=== PATIENT | male | born 1955 | race Caucasian/White ===

== ENCOUNTER 2019-10-03 13:31 | Observation (INO) | payer OTHER ==
[2019-10-03] MEDS ORDERED: methylPREDNISolone SOD SUCCI 125 MG/2 ML VIAL IV STA (13:51)
[2019-10-03] MEDS ORDERED: ALBUTEROL NEBULIZED 2.5 MG/3 ML INHALATION STA (13:51)
[2019-10-03] MEDS ORDERED: IPRATROPIUM 0.5 MG/2.5 ML NEBU INHALATION STA (13:51)
--- NOTE | 2019-10-03 14:03 | ED ---
General Adult HPI - General Chief complaint: Chest Pain Stated complaint: Chest Pain Time Seen by Provider: 10/03/19 13:33 Source: patient, EMS, RN notes reviewed, old records reviewed Mode of arrival: EMS - History of Present Illness Initial comments: 63-year-old male presenting from [facility] for evaluation of chest pain and abdominal pain as well as difficulty breathing. Patient is 4 days free from narcotics and alcohol. He began developing some chest pain and dyspnea as well as some abdominal pain over the past 24 hours. He was sent to the emergency department for evaluation. Patient reports substernal and epigastric abdominal pain no radiating features. Additionally said some cough and dyspnea and is audibly wheezing on exam. No fever. No diarrhea. - Related Data Home Medications Medication Instructions Recorded Confirmed No Known Home Medications 10/03/19 10/03/19 Allergies Allergy/AdvReac Type Severity Reaction Status Date / Time No Known Allergies Allergy Verified 10/03/19 15:51 Review of Systems ROS Statement: Those systems with pertinent positive or pertinent negative responses have been documented in the HPI. ROS Other: All systems not noted in ROS Statement are negative. Past Medical History History of Any Multi-Drug Resistant Organisms: None Reported Additional Past Surgical History / Comment(s): surgical removal of object when baby Past Psychological History: No Psychological Hx Reported Smoking Status: Current every day smoker Past Alcohol Use History: Abuse, Daily Past Drug Use History: Heroin General Exam General appearance: alert, in no apparent distress Head exam: Present: atraumatic, normocephalic Eye exam: Present: normal appearance, PERRL ENT exam: Present: normal exam Neck exam: Present: normal inspection. Absent: tenderness, meningismus Respiratory exam: Present: respiratory distress, wheezes Cardiovascular Exam: Present: normal rhythm, tachycardia GI/Abdominal exam: Present: soft, tenderness (Mild epigastric tenderness). Absent: distended Extremities exam: Present: normal inspection, normal capillary refill, pedal edema (trace) Neurological exam: Present: alert, oriented X3, CN II-XII intact. Absent: motor sensory deficit Psychiatric exam: Present: anxious Skin exam: Present: warm, dry, intact. Absent: cyanosis, diaphoretic Course Vital Signs 10/03/19 10/03/19 10/03/19 13:35 14:16 14:29 Temperature 98.4 F Pulse Rate 110 H 86 104 H Respiratory 22 Rate Blood Pressure 162/115 O2 Sat by Pulse 96 Oximetry EKG Findings - EKG Comments: EKG Findings:: EKG: Normal sinus rhythm, rate of 86, MD interval 156, QRS durat ion 90, QTC 414, no ST segment elevation. Medical Decision Making - Medical Decision Making 63-[facility] with chest pain, abdominal pain, dyspnea. Patient wheezing on exam. EKG showing sinus rhythm without ST segment elevation. He has a chest x-ray concerning for CHF versus pulmonary fibrosis. He does have some fairly severe epigastric abdominal pain, ultrasound is ordered which shows a dilated common bile duct, with minimal elevation in AST ALT and alkaline phosphatase. Patient is improved while emergency prompt. He remains moderately dyspneic with wheezing throughout. He will be admitted for treatment of asthma and COPD. Case discussed with Dr. Almonte who will admit. - Lab Data Result diagrams: 10/03/19 14:23 10/03/19 14:23 Lab Results 10/03/19 10/03/19 10/03/19 Range/Units 14:23 14:23 14:23 WBC 3.9 (3.8-10.6) k/uL RBC 3.48 L (4.30-5.90) m/uL Hgb 13.4 (13.0-17.5) gm/dL Hct 40.1 (39.0-53.0) % MCV 115.3 H (80.0-100.0) fL MCH 38.4 H (25.0-35.0) pg MCHC 33.3 (31.0-37.0) g/dL RDW 13.8 (11.5-15.5) % Plt Count 120 L (150-450) k/uL Neutrophils % 69 % Lymphocytes % 21 % Monocytes % 6 % Eosinophils % 1 % Basophils % 0 % Neutrophils # 2.7 (1.3-7.7) k/uL Lymphocytes # 0.8 L (1.0-4.8) k/uL Monocytes # 0.3 (0-1.0) k/uL Eosinophils # 0.1 (0-0.7) k/uL Basophils # 0.0 (0-0.2) k/uL Manual Slide Review Performed Macrocytosis Marked A PT 11.1 (9.0-12.0) sec INR 1.1 (<1.2) APTT 23.2 (22.0-30.0) sec VBG pH (7.31-7.41) VBG pCO2 (37-51) mmHg VBG HCO3 (24-28) mmol/L Sodium 135 L (137-145) mmol/L Potassium 4.5 (3.5-5.1) mmol/L Chloride 102 (98-107) mmol/L Carbon Dioxide 26 (22-30) mmol/L Anion Gap 7 mmol/L BUN 18 (9-20) mg/dL Creatinine 0.68 (0.66-1.25) mg/dL Est GFR (CKD-EPI)AfAm >90 (>60 ml/min/1.73 sqM) Est GFR (CKD-EPI)NonAf >90 (>60 ml/min/1.73 sqM) Glucose 123 H (74-99) mg/dL Plasma Lactic Acid Librado (0.7-2.0) mmol/L Calcium 9.4 (8.4-10.2) mg/dL Magnesium 1.9 (1.6-2.3) mg/dL Total Bilirubin 1.3 (0.2-1.3) mg/dL AST 140 H (17-59) U/L ALT 76 H (4-49) U/L Alkaline Phosphatase 200 H (38-126) U/L Troponin I (0.000-0.034) ng/mL NT-Pro-B Natriuret Pep pg/mL Total Protein 8.8 H (6.3-8.2) g/dL Albumin 3.9 (3.5-5.0) g/dL 10/03/19 10/03/19 10/03/19 Range/Units 14:23 14:23 14:23 WBC (3.8-10.6) k/uL RBC (4.30-5.90) m/uL Hgb (13.0-17.5) gm/dL Hct (39.0-53.0) % MCV (80.0-100.0) fL MCH (25.0-35.0) pg MCHC (31.0-37.0) g/dL RDW (11.5-15.5) % Plt Count (150-450) k/uL Neutrophils % % Lymphocytes % % Monocytes % % Eosinophils % % Basophils % % Neutrophils # (1.3-7.7) k/uL Lymphocytes # (1.0-4.8) k/uL Monocytes # (0-1.0) k/uL Eosinophils # (0-0.7) k/uL Basophils # (0-0.2) k/uL Manual Slide Review Macrocytosis PT (9.0-12.0) sec INR (<1.2) APTT (22.0-30.0) sec VBG pH (7.31-7.41) VBG pCO2 (37-51) mmHg VBG HCO3 (24-28) mmol/L Sodium (137-145) mmol/L Potassium (3.5-5.1) mmol/L Chloride (98-107) mmol/L Carbon Dioxide (22-30) mmol/L Anion Gap mmol/L BUN (9-20) mg/dL Creatinine (0.66-1.25) mg/dL Est GFR (CKD-EPI)AfAm (>60 ml/min/1.73 sqM) Est GFR (CKD-EPI)NonAf (>60 ml/min/1.73 sqM) Glucose (74-99) mg/dL Plasma Lactic Acid Librado 1.1 (0.7-2.0) mmol/L Calcium (8.4-10.2) mg/dL Magnesium (1.6-2.3) mg/dL Total Bilirubin (0.2-1.3) mg/dL AST (17-59) U/L ALT (4-49) U/L Alkaline Phosphatase (38-126) U/L Troponin I 0.013 (0.000-0.034) ng/mL NT-Pro-B Natriuret Pep 364 pg/mL Total Protein (6.3-8.2) g/dL Albumin (3.5-5.0) g/dL 10/03/19 Range/Units 14:23 WBC (3.8-10.6) k/uL RBC (4.30-5.90) m/uL Hgb (13.0-17.5) gm/dL Hct (39.0-53.0) % MCV (80.0-100.0) fL MCH (25.0-35.0) pg MCHC (31.0-37.0) g/dL RDW (11.5-15.5) % Plt Count (150-450) k/uL Neutrophils % % Lymphocytes % % Monocytes % % Eosinophils % % Basophils % % Neutrophils # (1.3-7.7) k/uL Lymphocytes # (1.0-4.8) k/uL Monocytes # (0-1.0) k/uL Eosinophils # (0-0.7) k/uL Basophils # (0-0.2) k/uL Manual Slide Review Macrocytosis PT (9.0-12.0) sec INR (<1.2) APTT (22.0-30.0) sec VBG pH 7.48 H (7.31-7.41) VBG pCO2 40 (37-51) mmHg VBG HCO3 29 H (24-28) mmol/L Sodium (137-145) mmol/L Potassium (3.5-5.1) mmol/L Chloride (98-107) mmol/L Carbon Dioxide (22-30) mmol/L Anion Gap mmol/L BUN (9-20) mg/dL Creatinine (0.66-1.25) mg/dL Est GFR (CKD-EPI)AfAm (>60 ml/min/1.73 sqM) Est GFR (CKD-EPI)NonAf (>60 ml/min/1.73 sqM) Glucose (74-99) mg/dL Plasma Lactic Acid Librado (0.7-2.0) mmol/L Calcium (8.4-10.2) mg/dL Magnesium (1.6-2.3) mg/dL Total Bilirubin (0.2-1.3) mg/dL AST (17-59) U/L ALT (4-49) U/L Alkaline Phosphatase (38-126) U/L Troponin I (0.000-0.034) ng/mL NT-Pro-B Natriuret Pep pg/mL Total Protein (6.3-8.2) g/dL Albumin (3.5-5.0) g/dL Disposition Clinical Impression: Chest pain, COPD (chronic obstructive pulmonary disease) Disposition: ADMITTED IP TO THIS [facility] Condition: Stable Is patient prescribed a controlled substance at d/c from ED?: No Referrals: None,Stated [REFERRING] - 1-2 days Decision to Admit Reason: Admit from EC Decision Date: 10/03/19 Decision Time: 17:14
[2019-10-03] MEDS ORDERED: LORazepam 2 MG/ML INJ IV STA ×2 (14:06→17:29)
[2019-10-03] MEDS ORDERED: MORPHINE SULFATE 2 MG/ML SYRINGE IVP STA ×2 (14:06→15:06)
[2019-10-03 14:42] LABS: VBG PH 7.48 (7.31-7.41)
[2019-10-03 14:52] LABS: ALT 76 U/L (4-49); AST 140 U/L (17-59); African American GFR (CKD) >90 (>60 ml/min/1.73 sqM); Albumin 3.9 g/dL (3.5-5.0); Alkaline Phosphatase 200 U/L (38-126); Anion Gap 7 mmol/L; Blood Urea Nitrogen 18 mg/dL (9-20); Calcium 9.4 mg/dL (8.4-10.2); Carbon Dioxide 26 mmol/L (22-30); Chloride 102 mmol/L (98-107); Glucose 123 mg/dL (74-99); Magnesium 1.9 mg/dL (1.6-2.3); Non-African American GFR(CKD) >90 (>60 ml/min/1.73 sqM); Potassium 4.5 mmol/L (3.5-5.1); Sodium 135 mmol/L (137-145); Total Bilirubin 1.3 mg/dL (0.2-1.3); Total Protein 8.8 g/dL (6.3-8.2)
[2019-10-03 14:57] LABS: INR 1.1 (<1.2); Partial Thromboplastin Time 23.2 sec (22.0-30.0); Prothrombin Time 11.1 sec (9.0-12.0)
--- NOTE | 2019-10-03 14:59 | XR ---
EXAMINATION TYPE: XR chest 2V DATE OF EXAM: 10/03/2019 COMPARISON: NONE HISTORY: Shortness of breath and chest pain. TECHNIQUE: Frontal and lateral views of the chest are obtained. FINDINGS: Cardiomegaly is present. Reticular interstitial changes bilaterally. No suspicious focal a irspace opacity, pleural effusion, or pneumothorax. Osseous structures are intact. IMPRESSION: Cardiomegaly and bilateral reticular interstitial changes could reflect edema and/or fib rosis. Correlation with old outside chest x-ray would be beneficial.
[2019-10-03 15:11] LABS: Basophils % (A) 0 %; Eosinophils # (A) 0.1 k/uL (0-0.7); Eosinophils % (A) 1 %; HCT 40.1 % (39.0-53.0); HGB 13.4 gm/dL (13.0-17.5); Lymphocytes # (A) 0.8 k/uL (1.0-4.8); Lymphocytes % (A) 21 %; MCH 38.4 pg (25.0-35.0); MCHC 33.3 g/dL (31.0-37.0); MCV 115.3 fL (80.0-100.0); Macrocytosis Marked; Mean Platelet Volume 8.1; Monocytes # (A) 0.3 k/uL (0-1.0); Monocytes % (A) 6 %; Neutrophils # (A) 2.7 k/uL (1.3-7.7); Neutrophils % (A) 69 %; Platelet Count 120 k/uL (150-450); RBC 3.48 m/uL (4.30-5.90); RDW 13.8 % (11.5-15.5); WBC 3.9 k/uL (3.8-10.6)
[2019-10-03] MEDS ORDERED: MORPHINE SULFATE 4 MG/ML SYRINGE IVP STA (15:20)
[2019-10-03] MEDS ORDERED: FUROSEMIDE 10 MG/ML 2 ML VIAL IV STA (15:20)
--- NOTE | 2019-10-03 16:42 | US ---
EXAMINATION TYPE: US gallbladder DATE OF EXAM: 10/03/2019 COMPARISON: NONE CLINICAL HISTORY: ab pain. Severe epigastric pain today, chest pain EXAM MEASUREMENTS: Liver Length: 16.4 cm Gallbladder Wall: 0.2 cm CBD: 1.36 cm supine assessment Right Kidney: 12.4 x 6.9 x 6.3 cm Patient intolerant of US due to abdominal pain with probe pressure and was constantly moving Pancreas: not seen due to overlying bowel gas Liver: fatty as is hyperechoic to right renal cortex and vessels not seen; attenuated posteriorly Gallbladder: wnl Evidence for sonographic Yost's sign: pain here CBD: abnormally dilated and assessed in supine and LLD positions Right Kidney: couple of renal cysts seen with largest seen in upper cortex = 3.0 x 2.6 x 2.1cm. Suboptimal evaluation of pancreas and images saved. Visualized liver is heterogeneously hyperechoic. Evaluation for focal masses suboptimal due to the heterogeneity. Common bile duct shows moderate dila tation at 13 mm. No obvious intrahepatic biliary dilatation. Gallbladder shows no shadowing mobile ga llstones. Technologist marked simple appearing 3.0 cm cyst right kidney upper midpole level. No hydro nephrosis is evident. IMPRESSION: No shadowing mobile gallstones or ultrasound evidence for acute cholecystitis. Moderate e xtra hepatic biliary dilatation without obvious intrahepatic biliary dilatation. Correlate clinically and with liver lab values. Heterogeneity of liver could be on basis of diffuse fatty infiltration an d/or underlying hepatocellular disease.
[2019-10-03] MEDS ORDERED: IPRATROPIUM-ALBUTEROL 3 ML NEB INHALATION PRN (17:11)
[2019-10-03] MEDS ORDERED: LORazepam 2 MG/ML INJ IV PRN ×2 (17:12)
[2019-10-03] MEDS ORDERED: THIAMINE 100 MG/ML 2 ML VIAL IM STA (17:12)
[2019-10-03] MEDS ORDERED: MORPHINE SULFATE 2 MG/ML SYRINGE IVP PRN (17:13)
--- NOTE | 2019-10-03 17:34 | P.HPIM ---
History of Present Illness H&P Date: 10/03/19 Chief Complaint: chest and abdominal pain Patient is a 63-year-old male with a history of tobacco abuse, alcohol abuse, and heroin abuse who presented from [place] secondary to chest pain, abdominal pain, difficulty in breathing. He underwent an extensive evaluation. His initial vital signs show a pulse of 110 and a blood pressure of 162/115. Initial laboratory analysis demonstrated platelet count of 120, macrocytosis, sodium 135, AST 140, ALT 76, alkaline phosphatase 200, bilirubin 1.3, troponin was negative at 0.013. EKG is reviewed by myself revealed normal sinus rhythm at a rate of 86, normal axis, normal intervals, and no significant ST-T wave changes. Chest x-ray demonstrated bilateral reticular interstitial changes reflecting edema or fibrosis. Gallbladder ultrasound showed an abnormally dilated extrahepatic bile duct, heterogeneous hyperechoic liver, but no evidence of gallstones or acute cholecystitis. In the ER the patient received 6 mg of morphine, 1 mg of Ativan, and 125 mg of Solu-Medrol. He was also noted to have lower extremity edema and received 1 dose of IV Lasix. Patient seen and examined at bedside in the ER. He reports he still feels terrible. He was at [place] for approximately 3 days secondary to alcohol abuse and heroin use. He was drinking 1.5 pint of vodka daily and using the $100 worth of heroin daily. It has been a long time since he has gone any days without using heroin or drinking. He reports he was having mild withdrawal symptoms and then received Subutex approximately 2 hours later had severe sudden onset withdrawal symptoms. He is complaining of abdominal pain which is periumbilical. He had diarrhea starting last night which has been persistent, he had nausea and vomiting starting today. He is feeling diaphoretic, having hot and cold flashes, but denies feeling shaky. He has chronic dry cough and wheezing which is typical for him. He also is chronic shortness of breath but has noted some worsening. He does report worsening acid reflux over the last few weeks. He had a rapid in crease in his alcohol consumption approximately 2 months ago. He reports that drinking milk has helped with this. He does feel as though his symptoms are likely related to opiate withdrawal. Patient does no erythema over his right breast and was waiting for it to come to ahead so he can pop it. He states he was injecting in this region. He is unsure how many days it has been like this. Review of Systems Pertinent positives and negatives as discussed in HPI, a complete review of systems was performed and all other systems are negative. Past Medical History History of Any Multi-Drug Resistant Organisms: None Reported Additional Past Surgical History / Comment(s): surgical removal of object when baby Past Psychological History: No Psychological Hx Reported Smoking Status: Current every day smoker Past Alcohol Use History: Abuse, Daily Past Drug Use History: Heroin Medications and Allergies Home Medications Medication Instructions Recorded Confirmed Type No Known Home Medications 10/03/19 10/03/19 History Allergies Allergy/AdvReac Type Severity Reaction Status Date / Time No Known Allergies Allergy Verified 10/03/19 15:51 Physical Exam Osteopathic Statement: *. No significant issues noted on an osteopathic structural exam other than those noted in the History and Physical/Consult. Vitals: Vital Signs Temp Pulse Resp BP Pulse Ox 10/03/19 17:26 98.2 F 64 20 169/123 96 10/03/19 14:29 104 H 10/03/19 14:16 86 10/03/19 13:35 98.4 F 110 H 22 162/115 96 Intake and Output 10/03/19 10/03/19 10/03/19 06:59 14:59 22:59 Other: Weight 113.398 kg General: Ill-appearing, diaphoretic, appears at stated age, obese Derm: Erythema with fluctuance over right wrist, warm, diaphoretic, multiple tattoos, ears and on both arms Head: atraumatic, normocephalic, symmetric Eyes: EOMI, no lid lag, anicteric sclera, pupils equal round reactive to light ENT: Nose and ears atraumatic, no thrush, no pharyngeal erythema Neck: No thyromegaly, no cervical lymphadenopathy, trachea midline, supple Mouth: no lip lesion, mucus membranes dry Cardiovascular: S1 and S2 tachycardic, positive posterior tibial pulse bilateral, no edema, capillary refill less than 2 seconds Lungs: Wheezing diffusely over right and left lung, no accessory muscle use Abdominal: soft, nontender to palpation, no guarding, no appreciable organomegaly, normal bowel sounds Ext: no gross muscle atrophy, muscle strength muscle strength 5 out of 5 in all 4 extremities, no contractures Neuro: CN II-XI grossly intact, light touch intact all 4 extremities, finger to nose within normal limits, Psych: Alert, sleeping but awakes to touch and voice, shaky when awakened, appropriate affect Results CBC & Chem 7: 10/03/19 14:23 10/03/19 14:23 Labs: Abnormal Lab Results - Last 24 Hours (Table) 10/03/19 10/03/19 10/03/19 Range/Units 14:23 14:23 14:23 RBC 3.48 L (4.30-5.90) m/uL MCV 115.3 H (80.0-100.0) fL MCH 38.4 H (25.0-35.0) pg Plt Count 120 L (150-450) k/uL Lymphocytes # 0.8 L (1.0-4.8) k/uL Macrocytosis Marked A VBG pH 7.48 H (7.31-7.41) VBG HCO3 29 H (24-28) mmol/L Sodium 135 L (137-145) mmol/L Glucose 123 H (74-99) mg/dL AST 140 H (17-59) U/L ALT 76 H (4-49) U/L Alkaline Phosphatase 200 H (38-126) U/L Total Protein 8.8 H (6.3-8.2) g/dL Chest x-ray: report reviewed Thrombosis Risk Factor Assmnt - DVT/VTE Prophylaxis DVT/VTE Prophylaxis: Pharmacologic Prophylaxis ordered Assessment and Plan Assessment: Precipitated withdrawal of heroin secondary to Buprenorphine induction -Patient received 6 mg of morphine in the ER. He would require high-dose opiate agonists to overcome these withdrawal symptoms. Unfortunately we do not have oral Buprenorphine available in the hospital to re-dose for improvement -supportive treatment with catapress, toradol, and Zofran Intractable abdominal pain suspect related to above -Trial of GI cocktail -Start PPI in case this is secondary to gastritis Chest pain -I again suspect secondary to opiate withdrawal -Trend serial troponins -Monitor telemetry Hypertensive urgency -Likely related to opiate and alcohol withdrawal -Follow blood pressures -Ativan as needed -Start Catapres Alcohol abuse with impending withdrawal -[facility] protocol -Thiamine -Folic acid -Social work consult Acute exacerbation of probable COPD -Bronchodilators -Steroids -Pulmonary hygiene -Recommend outpatient PFTs on discharge Transaminitis - suspect related to alcohol - follow liver enzymes - if elevate check Hep Panel - US with cirrhosis Right wrist abscess with cellulitis - follow clinically - start bactrim oral Obesity - structured outpatient weight loss Tobacco abuse - cessation - structured outpatient weight loss IF withdrawal worsens may need higher level of care Patient admitted with anticipated stay of less than 2 at midnight secondary to precipitated opiate withdrawal Surrogate decision-maker: Micaela Spears [phone] CODE STATUS: Full code DVT prophylaxis: Lovenox Discussed with: Patient, floor RN, ED physician Anticipated discharge: 1-[address]: return to [place] A total of 7 minutes was spent on the care of this complex patient more than 50% of the time was spent in counseling and care coordination.
[2019-10-03] MEDS ORDERED: MAG HYDROX/AL HYDROX/SIMETH 30 ML, HYOSCYAMINE ELIXIR 10 ML, LIDOCAINE VISCOUS 2% 10 ML PO ONE ×3 (18:00)
[2019-10-03] MEDS: THIAMINE 100 MG TAB PO SCH (18:30)
[2019-10-03] MEDS: methylPREDNISolone SOD SUCCI 125 MG/2 ML VIAL IV SCH ×2 (18:30→23:48)
[2019-10-03] MEDS ORDERED: DICLOFENAC SODIUM GEL 100 GM TUBE TOPICAL PRN (18:33)
[2019-10-03] MEDS ORDERED: PROCHLORPERAZINE 5 MG TAB PO PRN (18:33)
[2019-10-03] MEDS ORDERED: BENZOCAINE/MENTHOL LOZENG 1 EACH LOZENGE MUCOUS MEM PRN (18:33)
[2019-10-03] MEDS ORDERED: ONDANSETRON 4 MG/2 ML VIAL IVP PRN (18:33)
[2019-10-03] MEDS ORDERED: KETOROLAC 15 MG/ML 1 ML VIAL IVP PRN (18:33)
[2019-10-03] MEDS ORDERED: MELATONIN 3 MG TABLET PO PRN (18:33)
[2019-10-03] MEDS ORDERED: NALOXONE 0.4 MG/ML 1 ML VIAL IV PRN (18:33)
[2019-10-03] MEDS: FOLIC ACID 1 MG TAB PO SCH (19:38)
[2019-10-03] MEDS: cloNIDine HCL 0.2 MG TAB PO SCH ×2 (19:38→23:36)
[2019-10-03] MEDS: PANTOPRAZOLE 40 MG/10 ML VIAL IVP SCH (19:38)
[2019-10-03] MEDS: IPRATROPIUM-ALBUTEROL 3 ML NEB INHALATION SCH (20:15)
[2019-10-03] MEDS: LORazepam 2 MG/ML INJ IV PRN (23:47)
[2019-10-04] MEDS: methylPREDNISolone SOD SUCCI 125 MG/2 ML VIAL IV SCH (06:24)
[2019-10-04 07:11] LABS: HCT 42.7 % (39.0-53.0); MCH 38.3 pg (25.0-35.0); MCHC 32.9 g/dL (31.0-37.0); MCV 116.5 fL (80.0-100.0); Mean Platelet Volume 8.6; Platelet Count 136 k/uL (150-450); RBC 3.66 m/uL (4.30-5.90); RDW 13.9 % (11.5-15.5); WBC 7.5 k/uL (3.8-10.6)
[2019-10-04 07:25] LABS: ALT 66 U/L (4-49); AST 103 U/L (17-59); African American GFR (CKD) >90 (>60 ml/min/1.73 sqM); Albumin 4.1 g/dL (3.5-5.0); Alkaline Phosphatase 190 U/L (38-126); Anion Gap 9 mmol/L; Blood Urea Nitrogen 25 mg/dL (9-20); Calcium 9.2 mg/dL (8.4-10.2); Carbon Dioxide 26 mmol/L (22-30); Chloride 100 mmol/L (98-107); Glucose 152 mg/dL (74-99); Non-African American GFR(CKD) >90 (>60 ml/min/1.73 sqM); Phosphorus 4.5 mg/dL (2.5-4.5); Sodium 135 mmol/L (137-145); Total Bilirubin 1.5 mg/dL (0.2-1.3); Total Protein 9.5 g/dL (6.3-8.2)
[2019-10-04 07:29] LABS: Macrocytosis Marked
[2019-10-04] MEDS: IPRATROPIUM-ALBUTEROL 3 ML NEB INHALATION SCH ×4 (07:50→20:31)
[2019-10-04] MEDS ORDERED: ACETAMINOPHEN TAB 325 MG TAB PO PRN (08:40)
[2019-10-04] MEDS ORDERED: MAG HYDROX/AL HYDROX/SIMETH 30 ML, HYOSCYAMINE ELIXIR 10 ML, LIDOCAINE VISCOUS 2% 10 ML PO ONE ×3 (08:40)
[2019-10-04] MEDS: SODIUM CHLORIDE 0.9% 1,000 ML IV SCH (09:28)
[2019-10-04] MEDS: ENOXAPARIN 40 MG/0.4 ML SYRINGE SQ SCH (09:36)
[2019-10-04] MEDS: SULFAMETHOX-TMP 800-160MG 1 EACH TAB PO SCH ×2 (09:36→20:36)
[2019-10-04] MEDS: FOLIC ACID 1 MG TAB PO SCH (09:37)
[2019-10-04] MEDS: cloNIDine HCL 0.2 MG TAB PO SCH ×3 (09:37→20:35)
[2019-10-04] MEDS: PANTOPRAZOLE 40 MG/10 ML VIAL IVP SCH (09:37)
[2019-10-04] MEDS: THIAMINE 100 MG/ML 2 ML VIAL IVP SCH (09:38)
[2019-10-04] MEDS: THIAMINE 100 MG TAB PO SCH ×2 (09:38→17:00)
--- NOTE | 2019-10-04 11:23 | P.PN ---
Subjective Progress Note Date: 10/04/19 Principal diagnosis: pain Patient is a 63-year-old male with a history of tobacco abuse, alcohol abuse, and heroin abuse who presented from [place] secondary to chest pain, ab dominal pain, difficulty in breathing. He underwent an extensive evaluation. His initial vital signs show a pulse of 110 and a blood pressure of 162/115. Initial laboratory analysis demonstrated platelet count of 120, macrocytosis, sodium 135, AST 140, ALT 76, alkaline phosphatase 200, bilirubin 1.3, troponin was negative at 0.013. EKG is reviewed by myself revealed normal sinus rhythm at a rate of 86, normal axis, normal intervals, and no significant ST-T wave changes. Chest x-ray demonstrated bilateral reticular interstitial changes reflecting edema or fibrosis. Gallbladder ultrasound showed an abnormally dilated extrahepatic bile duct, heterogeneous hyperechoic liver, but no evidence of gallstones or acute cholecystitis. In the ER the patient received 6 mg of morphine, 1 mg of Ativan, and 125 mg of Solu-Medrol. He was also noted to have lower extremity edema and received 1 dose of IV Lasix. He was admitted for acute exacerbation of COPD and acute severe opiate withdrawal. He was started on catapres, toradol, and zofran. He had some improvement with GI cocktail. Patient seen and examined at bedside. He still is having some abdominal pain, he states it was resolved last night came back this morning. He has having some overall muscle cramps, no more diarrhea, intermittent nausea. He is still not feeling very well. We discussed that he will likely continue with his withdrawal and this is anticipated. We will try another GI cocktail and if he does not have significant pain relief we'll proceed with a CT abdomen and pelvis. General: Sleeping on a walk in the room, but then sits up and clenches his stomach, appears to be in mild distress, ill-appearing, disheveled Derm: warm, dry Head: atraumatic, normocephalic, symmetric Eyes: EOMI, no lid lag, anicteric sclera Mouth: no lip lesion, mucus membranes moist Cardiovascular: S1S2 reg, no murmur, positive posterior tibial pulse bilateral, Lungs: coarse breath sounds bilateral moderate wheezing, no accessory muscle use Abdominal: soft, +tender to palpation periumbilical, no guarding, no appreciable organomegaly Ext: no gross muscle atrophy, no edema, no contractures Neuro: CN II-XI grossly intact, no focal neuro deficits Psych: Alert, oriented, Appears anxious Precipitated withdrawal of heroin secondary to Buprenorphine induction -Patient received 6 mg of morphine in the ER. He would require high-dose opiate agonists to overcome these withdrawal symptoms. Unfortunately we do not have oral Buprenorphine available in the hospital to re-dose for improvement -supportive treatment with catapress, toradol, and Zofran Intractable abdominal pain suspect related to above - Improvement with GI cocktail - Continue PPI - Check Lipase Chest pain - I again suspect secondary to opiate withdrawal - Trend serial troponins - Monitor telemetry - Await echo Hypertensive urgency, improved -Likely related to opiate and alcohol withdrawal -Follow blood pressures -Ativan as needed -catapres Alcohol abuse with impending withdrawal -[facility] protocol -Thiamine -Folic acid -Social work consult Acute exacerbation of probable COPD -Bronchodilators -Steroids to oral -Pulmonary hygiene -Recommend outpatient PFTs on discharge Transaminitis - suspect related to alcohol - follow liver enzymes - if elevate check Hep Panel - US with cirrhosis Right wrist abscess with cellulitis - follow clinically - start bactrim oral Obesity - structured outpatient weight loss Tobacco abuse - cessation - structured outpatient weight loss DVT prophylaxis: Lovenox Discussed with: Patient, nursing Anticipated discharge: in AM Anticipated discharge place: [facility] A total of 35 minutes was spent on the care of this complex patient more than 50% of the time was spent in counseling and care coordination. Objective - Vital Signs Vital signs: Vital Signs Temp 97.6 F 10/04/19 04:07 Pulse 92 10/04/19 08:01 Resp 18 10/04/19 04:07 BP 156/84 10/04/19 04:07 Pulse Ox 92 L 10/04/19 07:50 Intake & Output 10/03/19 10/04/19 10/04/19 18:59 06:59 18:59 Output Total 600 Balance -600 Weight 113.398 kg Output: Urine 600 Other: # Voids 0 # Bowel Movements 0 - Labs CBC & Chem 7: 10/04/19 06:44 10/04/19 06:44 Labs: Abnormal Lab Results - Last 24 Hours (Table) 10/03/19 10/03/19 10/03/19 Range/Units 14:23 14:23 14:23 RBC 3.48 L (4.30-5.90) m/uL MCV 115.3 H (80.0-100.0) fL MCH 38.4 H (25.0-35.0) pg Plt Count 120 L (150-450) k/uL Lymphocytes # 0.8 L (1.0-4.8) k/uL Macrocytosis Marked A VBG pH 7.48 H (7.31-7.41) VBG HCO3 29 H (24-28) mmol/L Sodium 135 L (137-145) mmol/L BUN (9-20) mg/dL Glucose 123 H (74-99) mg/dL Total Bilirubin (0.2-1.3) mg/dL AST 140 H (17-59) U/L ALT 76 H (4-49) U/L Alkaline Phosphatase 200 H (38-126) U/L Total Protein 8.8 H (6.3-8.2) g/dL 10/04/19 10/04/19 Range/Units 06:44 06:44 RBC 3.66 L (4.30-5.90) m/uL MCV 116.5 H (80.0-100.0) fL MCH 38.3 H (25.0-35.0) pg Plt Count 136 L (150-450) k/uL Lymphocytes # (1.0-4.8) k/uL Macrocytosis Marked A VBG pH (7.31-7.41) VBG HCO3 (24-28) mmol/L Sodium 135 L (137-145) mmol/L BUN 25 H (9-20) mg/dL Glucose 152 H (74-99) mg/dL Total Bilirubin 1.5 H (0.2-1.3) mg/dL AST 103 H (17-59) U/L ALT 66 H (4-49) U/L Alkaline Phosphatase 190 H (38-126) U/L Total Protein 9.5 H (6.3-8.2) g/dL
--- NOTE | 2019-10-04 12:38 | ECHOF ---
Referral Reason:CHF MEASUREMENTS -------- HEIGHT: 177.8 cm WEIGHT: 113.4 kg BP: 156/84 IVSd: 1.2 cm (0.6 - 1.1) LVIDd: 5.4 cm (3.9 - 5.3) LVPWd: 1.6 cm (0.6 - 1.1) IVSs: 1.8 cm LVIDs: 4.0 cm LVPWs: 1.6 cm LAESV Index (A-L): 28.29 ml/m Ao Diam: 3.7 cm (2.0 - 3.7) AV Cusp: 1.7 cm (1.5 - 2.6) MV E Leonard: 0.53 m/s MV DecT: 205 ms MV A Leonard: 0.88 m/s MV E/A Ratio: 0.61 RAP: 5.00 mmHg RVSP: 34.59 mmHg FINDINGS -------- Sinus rhythm. This was a technically difficult study with suboptimal views. The left ventricular size is normal. There is mild concentric left ventricular hypertrophy. Overa ll left ventricular systolic function is low-normal with, an EF between 50 - 55 %. The RV was not well visualized. Normal LA size by volume 22+/-6 ml/m2. The right atrium was not well visualized. 5.0mg of Lumason was utilized for enhancement of images The aortic valve was not well visualized. There is no evidence of aortic regurgitation. There is no evidence of aortic stenosis. The mitral valve was not well visualized. Mild mitral regurgitation is present. The tricuspid valve was not well visualized. Mild tricuspid regurgitation present. There is no ev idence of pulmonary hypertension. The right ventricular systolic pressure, as measured by Doppler, is 34.59mmHg. The pulmonic valve was not well visualized. The aortic root size is normal. IVC Not well visulized. There is no pericardial effusion. CONCLUSIONS -------- 1. There is mild concentric left ventricular hypertrophy. 2. Overall left ventricular systolic function is low-normal with, an EF between 50 - 55 %. 3. Normal LA size by volume 22+/-6 ml/m2. 4. The aortic valve was not well visualized. 5. Mild mitral regurgitation is present. 6. Mild tricuspid regurgitation present. 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
[2019-10-04] MEDS: predniSONE 20 MG TAB PO SCH (12:58)
[2019-10-04] MEDS: LORazepam 2 MG/ML INJ IV PRN (17:01)
[2019-10-05] MEDS: LORazepam 2 MG/ML INJ IV PRN ×2 (03:31→08:03)
[2019-10-05] MEDS: SODIUM CHLORIDE 0.9% 1,000 ML IV SCH (03:55)
[2019-10-05 05:36] VITALS: BP 153/83; RESP 20; TEMP 97.8
[2019-10-05] MEDS: IPRATROPIUM-ALBUTEROL 3 ML NEB INHALATION SCH ×2 (07:54→11:04)
[2019-10-05] MEDS: FOLIC ACID 1 MG TAB PO SCH (08:03)
[2019-10-05] MEDS: PANTOPRAZOLE 40 MG/10 ML VIAL IVP SCH ×2 (08:03→08:04)
[2019-10-05] MEDS: ENOXAPARIN 40 MG/0.4 ML SYRINGE SQ SCH (08:03)
[2019-10-05] MEDS: THIAMINE 100 MG TAB PO SCH (08:03)
[2019-10-05] MEDS: cloNIDine HCL 0.2 MG TAB PO SCH (08:03)
[2019-10-05] MEDS: predniSONE 20 MG TAB PO SCH (08:03)
[2019-10-05] MEDS: THIAMINE 100 MG/ML 2 ML VIAL IVP SCH (08:04)
[2019-10-05 08:08] LABS: Basophils % (A) 0 %; Eosinophils # (A) 0.1 k/uL (0-0.7); Eosinophils % (A) 1 %; HCT 43.7 % (39.0-53.0); HGB 14.2 gm/dL (13.0-17.5); Lymphocytes # (A) 1.2 k/uL (1.0-4.8); Lymphocytes % (A) 11 %; MCHC 32.4 g/dL (31.0-37.0); Macrocytosis Marked; Mean Platelet Volume 8.4; Monocytes # (A) 0.5 k/uL (0-1.0); Monocytes % (A) 5 %; Neutrophils # (A) 8.9 k/uL (1.3-7.7); Neutrophils % (A) 82 %; Platelet Count 127 k/uL (150-450); RBC 3.73 m/uL (4.30-5.90); RDW 14.1 % (11.5-15.5); WBC 10.9 k/uL (3.8-10.6)
[2019-10-05 08:17] LABS: ALT 55 U/L (4-49); AST 74 U/L (17-59); African American GFR (CKD) >90 (>60 ml/min/1.73 sqM); Alkaline Phosphatase 163 U/L (38-126); Anion Gap 8 mmol/L; Blood Urea Nitrogen 26 mg/dL (9-20); Calcium 8.8 mg/dL (8.4-10.2); Carbon Dioxide 27 mmol/L (22-30); Chloride 102 mmol/L (98-107); Glucose 105 mg/dL (74-99); Magnesium 2.2 mg/dL (1.6-2.3); Non-African American GFR(CKD) >90 (>60 ml/min/1.73 sqM); Potassium 4.7 mmol/L (3.5-5.1); Sodium 137 mmol/L (137-145); Total Bilirubin 1.5 mg/dL (0.2-1.3); Total Protein 9.1 g/dL (6.3-8.2)
--- NOTE | 2019-10-05 09:57 | P.DS ---
Providers Date of admission: 10/03/19 17:11 Expected date of discharge: 10/05/19 Attending physician: Celia Almonte DO Primary care physician: Physician Nonstaff Hospital Course: Discharge Diagnosis: Percipitated Acute opaite with drawal due to Buprenorphine induction Acute exacerbation of probable COPD Gastritis Cellulitis right wrist due to IVDA Non cardaic chest pain HTN urgency likely related to withdrawal Alcohol abuse with impending withdrawal IVDA Transaminitis Obesity Tobacco abuse Hospital Course: Patient is a 63-year-old male with a history of tobacco abuse, alcohol abuse, and heroin abuse who presented from [facility] secondary to chest pain, abdominal pain, difficulty in breathing. He underwent an extensive evaluation. His initial vital signs show a pulse of 110 and a blood pressure of 162/115. Initial laboratory analysis demonstrated platelet count of 120, macrocytosis, sodium 135, AST 140, ALT 76, alkaline phosphatase 200, bilirubin 1.3, troponin was negative at 0.013. EKG is reviewed by myself revealed normal sinus rhythm at a rate of 86, normal axis, normal intervals, and no significant ST-T wave changes. Chest x-ray demonstrated bilateral reticular interstitial changes reflecting edema or fibrosis. Gallbladder ultrasound showed an abnormally dilated extrahepatic bile duct, heterogeneous hyperechoic liver, but no evidence of gallstones or acute cholecystitis. In the ER the patient received 6 mg of morphine, 1 mg of Ativan, and 125 mg of Solu-Medrol. He was also noted to have lower extremity edema and received 1 dose of IV Lasix. He was admitted for acute exacerbation of COPD and acute severe opiate withdrawal. He was started on catapres, toradol, and zofran. He had some improvement with GI cocktail. His abdominal pain continued to improve. His withdrawal symptoms improved. His breathing was also better. His liver enzymes stabalized. Echo was normal. He was determined stable for discharge back to [place]. He will complete a course of prednisone, Albuterol, protonix, motrin,and ativan to complete his withdrawal treatment. Patient seen and examined at bedside. No chest pain, breathing is better than yesterday but still not back to baseline. His abdominal pain is much better, it completely resolves after ativan treatment. Patient feeling well and wants to go back to [facility] complete treatment Vital signs reviewed and stable. General: non toxic, no distress, appears at stated age Derm: warm, dry, multiple tatoos Head: atraumatic, normocephalic, symmetric Eyes: EOMI, no lid lag, anicteric sclera Mouth: no lip lesion, mucus membranes moist Cardiovascular: S1S2 reg, no murmur, positive posterior tibial pulse bilateral, Lungs: Coarse breath sounds bilateral with wheezing however improved from yesterday, no accessory muscle use Abdominal: soft, nontender to palpation, no guarding, no appreciable organomegaly Ext: no gross muscle atrophy, no edema, no contractures Neuro: CN II-XI grossly intact, no focal neuro deficits Psych: Alert, oriented, appropriate affect A total of 35 minutes of time were spent preparing this complex discharge summary . Patient Condition at Discharge: Stable Plan - Discharge Summary New Discharge Prescriptions: New Albuterol Sulfate [Albuterol Sulfate Hfa] 2 puff PO Q6H PRN #1 inhaler PRN Reason: Shortness Of Breath LORazepam [Ativan] 1 mg PO BID 2 Days #4 tab Sulfamethox-Tmp 800-160Mg [Bactrim DS 800-160 mg] 1 each PO BID #18 tab cloNIDine HCL [Catapres] 0.2 mg PO TID #45 tab Ipratropium/Albuterol Sulfate [Combivent Respimat Inhaler] 2 puff INHALATION QID #1 inhaler predniSONE [Deltasone] 40 mg PO DAILY #10 tab Folic Acid 1 mg PO DAILY #15 tab Pantoprazole [Protonix] 40 mg PO DAILY #30 tablet. Thiamine [Vitamin B-1] 100 mg PO BID-W/MEALS #30 tab Discharge Medication List Albuterol Sulfate [Albuterol Sulfate Hfa] 2 puff PO Q6H PRN #1 inhaler 10/05/19 [Rx] Folic Acid 1 mg PO DAILY #15 tab 10/05/19 [Rx] Ipratropium/Albuterol Sulfate [Combivent Respimat Inhaler] 2 puff INHALATION QID #1 inhaler 10/05/19 [Rx] LORazepam [Ativan] 1 mg PO BID 2 Days #4 tab 10/05/19 [Rx] Pantoprazole [Protonix] 40 mg PO DAILY #30 tablet. 10/05/19 [Rx] Sulfamethox-Tmp 800-160Mg [Bactrim DS 800-160 mg] 1 each PO BID #18 tab 10/05/19 [Rx] Thiamine [Vitamin B-1] 100 mg PO BID-W/MEALS #30 tab 10/05/19 [Rx] cloNIDine HCL [Catapres] 0.2 mg PO TID #45 tab 10/05/19 [Rx] predniSONE [Deltasone] 40 mg PO DAILY #10 tab 10/05/19 [Rx] Follow up Appointment(s)/Referral(s): None,Stated [REFERRING] - 1-2 days Activity/Diet/Wound Care/Special Instructions: Activity: as toelrated Diet: regular Wound Care: follow lesion on your right hand if starts to drain, becomes more red, or your develop fevers, chills seek medical care. Take all antibiotics until completion. Special Instructions: Find a Primary Doctor close to your for formal evaluation of COPD and also monitor of liver.
[2019-10-05] MEDS: SULFAMETHOX-TMP 800-160MG 1 EACH TAB PO SCH (10:53)
[2019-10-05 11:05] VITALS: PULSE 76
== END 2019-10-05 12:45 | disposition other institution (70) ==
LOC: EC 13:31 → 5NMEDONC 17:11
PROVIDERS: ADMIT Internal Medicine; ATTEND Internal Medicine
DX: F11.23 Opioid dependence with withdrawal (principal); R07.89 Other chest pain; F10.10 Alcohol abuse, uncomplicated; I16.0 Hypertensive urgency; J44.9 Chronic obstructive pulmonary disease, unspecified; K29.70 Gastritis, unspecified, without bleeding; L03.113 Cellulitis of right upper limb; R74.8 Abnormal levels of other serum enzymes; R74.0 Nonspecific elevation of levels of transaminase and lactic acid dehydrogenase [LDH]; F17.200 Nicotine dependence, unspecified, uncomplicated; K83.8 Other specified diseases of biliary tract; E66.9 Obesity, unspecified; R91.8 Other nonspecific abnormal finding of lung field; L02.413 Cutaneous abscess of right upper limb; I08.1 Rheumatic disorders of both mitral and tricuspid valves; Z68.35 Body mass index [BMI] 35.0-35.9, adult; Z98.890 Other specified postprocedural states; Y90.9 Presence of alcohol in blood, level not specified
CPT/HCPCS: 96376 ×4; 96372 ×3; 96375 ×3; 96374; 99285; 36415; 94640 ×5; 94760; 93005; 83880; 80053 ×3; 82803; 83605; 83690; 83735 ×3; 84100; 84484; 85025 ×2; 85027; 85610; 85730; 71046; 76705; G0378 ×3; C8929; J2060 ×3; J2270 ×2; J1940; J2930 ×2; J3411 ×3; J1650 ×2; J1885; J7512 ×2; C9113 ×3; Q9950; 93306

== ENCOUNTER 2021-09-17 16:18 | Inpatient (IN) | payer MEDICARE, OTHER ==
[2021-09-17 17:21] LABS: HGB 12.8 gm/dL (13.0-17.5); MCHC 32.9 g/dL (31.0-37.0); MCV 121.6 fL (80.0-100.0); Macrocytosis Marked; Mean Platelet Volume 9.3; RDW 14.3 % (11.5-15.5); WBC 3.5 k/uL (3.8-10.6)
[2021-09-17 17:30] LABS: INR 1.3 (<1.2); Partial Thromboplastin Time 27.7 sec (22.0-30.0); Prothrombin Time 13.1 sec (9.0-12.0)
[2021-09-17 17:35] LABS: ALT 70 U/L (4-49); AST 191 U/L (17-59); African American GFR (CKD) >90 (>60 ml/min/1.73 sqM); Albumin 3.8 g/dL (3.5-5.0); Alkaline Phosphatase 201 U/L (38-126); Anion Gap 10 mmol/L; Blood Urea Nitrogen 16 mg/dL (9-20); Calcium 8.6 mg/dL (8.4-10.2); Carbon Dioxide 25 mmol/L (22-30); Chloride 100 mmol/L (98-107); Glucose 110 mg/dL (74-99); Magnesium 1.6 mg/dL (1.6-2.3); Non-African American GFR(CKD) >90 (>60 ml/min/1.73 sqM); Potassium 4.9 mmol/L (3.5-5.1); Sodium 135 mmol/L (137-145)
--- NOTE | 2021-09-17 17:38 | XR ---
EXAMINATION TYPE: XR chest 2V DATE OF EXAM: 09/17/2021 5:31 PM COMPARISON: Chest x-ray 10/03/2019 TECHNIQUE: XR chest 2V . CLINICAL INDICATION:Male, 65 years old with history of difficulty breathing; FINDINGS: Lungs/Pleura: There are interstitial changes are noted bilaterally. Patchy atelectasis of the bilater al lung bases. No focal airspace consolidations. No evidence for sizable pericardial effusion. No pne umothorax. Pulmonary vascularity: Mild pulmonary vascular congestion. Heart/mediastinum: Cardiomediastinal silhouette is enlarged and stable. Atherosclerotic calcificatio ns are seen in the aorta. Musculoskeletal: No acute osseous pathology. IMPRESSION: Cardiomegaly with pulmonary vascular congestion, correlate with BNP for congestive heart failure.
--- NOTE | 2021-09-17 17:42 | ED ---
General Adult HPI - General Chief complaint: Extremity Injury, Lower Stated complaint: cellulitis Time Seen by Provider: 09/17/21 16:21 Source: patient, EMS, RN notes reviewed, old records reviewed Mode of arrival: EMS Limitations: no limitations - History of Present Illness Initial comments: 65 yo male presenting for evaluation of bilateral lower extremity swelling and erythema. This has been present for several months. Patient is currently attending rehabilitation for both opiates and alcohol abuse. He was sent to the emergency department for evaluation. He does report some mild dyspnea. No fever. - Related Data Home Medications Medication Instructions Recorded Confirmed Albuterol Sulfate [Albuterol 2 puff PO RT-Q6H PRN 09/17/21 09/17/21 Sulfate Hfa] Allergies Allergy/AdvReac Type Severity Reaction Status Date / Time No Known Allergies Allergy Verified 09/17/21 18:16 Review of Systems ROS Statement: Those systems with pertinent positive or pertinent negative responses have been documented in the HPI. ROS Other: All systems not noted in ROS Statement are negative. Past Medical History Past Medical History: COPD History of Any Multi-Drug Resistant Organisms: None Reported Past Surgical History: Orthopedic Surgery Additional Past Surgical History / Comment(s): surgical removal of object when baby Past Anesthesia/Blood Transfusion Reactions: No Reported Reaction Past Psychological History: No Psychological Hx Reported Smoking Status: Current every day smoker Past Alcohol Use History: Abuse, Daily Past Drug Use History: Heroin - Past Family History Father Family Medical History: Cancer Additional Family Medical History / Comment(s): of brain cancer Mother Additional Family Medical History / Comment(s): Mom of brain aneurysm, had pacemaker General Exam Limitations: no limitations General appearance: alert, in no apparent distress Head exam: Present: atraumatic, normocephalic Eye exam: Present: normal appearance, PERRL ENT exam: Present: normal exam, normal oropharynx Neck exam: Present: normal inspection. Absent: tenderness Respiratory exam: Present: decreased breath sounds. Absent: respiratory distress Cardiovascular Exam: Present: regular rate, normal rhythm GI/Abdominal exam: Present: soft. Absent: distended, tenderness, guarding Extremities exam: Present: pedal edema (Bilateral erythema, and edema, chronic venous stasis) Neurological exam: Present: alert, oriented X3, CN II-XII intact. Absent: motor sensory deficit Psychiatric exam: Present: normal affect, normal mood Skin exam: Present: warm, dry, intact. Absent: cyanosis, diaphoretic Course Vital Signs 09/17/21 16:31 Temperature 98.3 F Pulse Rate 97 Respiratory 20 Rate Blood Pressure 121/75 O2 Sat by Pulse 95 Oximetry EKG Findings - EKG Comments: EKG Findings:: EKG: Sinus rhythm rate of 92, CA interval 164, QRS duration 102, QTC [address] segment elevation. Medical Decision Making - Medical Decision Making 65-year-old male presents from rehabilitation for evaluation of bilateral lower extremity erythema and swelling which is been present for the past 2 months and associated dyspnea. Chest x-ray does show pulmonary edema and cardiomegaly. He has no prior history. He has at lab abnormalities consistent with alcohol abuse, he has a leukopenia, anemia and thrombocytopenia. He has elevated bilirubin and elevated transaminitis. His troponin is negative. His BNP is negative. He states he has remote history of endocarditis. He will be given Lasix and Ativan in the emergency department. He will be admitted for an echo. Case discussed with [facility]. - Lab Data Result diagrams: 09/17/21 17:01 09/17/21 17:01 Lab Results 09/17/21 09/17/21 09/17/21 Range/Units 17:01 17:01 17:01 WBC 3.5 L (3.8-10.6) k/uL RBC 3.20 L (4.30-5.90) m/uL Hgb 12.8 L (13.0-17.5) gm/dL Hct 39.0 (39.0-53.0) % MCV 121.6 H (80.0-100.0) fL MCH 40.0 H (25.0-35.0) pg MCHC 32.9 (31.0-37.0) g/dL RDW 14.3 (11.5-15.5) % Plt Count 86 L (150-450) k/uL MPV 9.3 Neutrophils % (Manual) 63 % Band Neuts % (Manual) 3 % Lymphocytes % (Manual) 27 % Monocytes % (Manual) 5 % Eosinophils % (Manual) 2 % Neutrophils # (Manual) 2.30 (1.3-7.7) k/uL Lymphocytes # (Manual) 0.95 L (1.0-4.8) k/uL Monocytes # (Manual) 0.18 (0-1.0) k/uL Eosinophils # (Manual) 0.07 (0-0.7) k/uL Nucleated RBCs 0 (0-0) /100 WBC Manual Slide Review Performed Macrocytosis Marked A PT 13.1 H (9.0-12.0) sec INR 1.3 H (<1.2) APTT 27.7 (22.0-30.0) sec Sodium 135 L (137-145) mmol/L Potassium 4.9 (3.5-5.1) mmol/L Chloride 100 (98-107) mmol/L Carbon Dioxide 25 (22-30) mmol/L Anion Gap 10 mmol/L BUN 16 (9-20) mg/dL Creatinine 0.60 L (0.66-1.25) mg/dL Est GFR (CKD-EPI)AfAm >90 (>60 ml/min/1.73 sqM) Est GFR (CKD-EPI)NonAf >90 (>60 ml/min/1.73 sqM) Glucose 110 H (74-99) mg/dL Calcium 8.6 (8.4-10.2) mg/dL Magnesium 1.6 (1.6-2.3) mg/dL Total Bilirubin 3.0 H (0.2-1.3) mg/dL AST 191 H (17-59) U/L ALT 70 H (4-49) U/L Alkaline Phosphatase 201 H (38-126) U/L Troponin I (0.000-0.034) ng/mL NT-Pro-B Natriuret Pep pg/mL Total Protein 9.0 H (6.3-8.2) g/dL Albumin 3.8 (3.5-5.0) g/dL 09/17/21 09/17/21 Range/Units 17:01 17:01 WBC (3.8-10.6) k/uL RBC (4.30-5.90) m/uL Hgb (13.0-17.5) gm/dL Hct (39.0-53.0) % MCV (80.0-100.0) fL MCH (25.0-35.0) pg MCHC (31.0-37.0) g/dL RDW (11.5-15.5) % Plt Count (150-450) k/uL MPV Neutrophils % (Manual) % Band Neuts % (Manual) % Lymphocytes % (Manual) % Monocytes % (Manual) % Eosinophils % (Manual) % Neutrophils # (Manual) (1.3-7.7) k/uL Lymphocytes # (Manual) (1.0-4.8) k/uL Monocytes # (Manual) (0-1.0) k/uL Eosinophils # (Manual) (0-0.7) k/uL Nucleated RBCs (0-0) /100 WBC Manual Slide Review Macrocytosis PT (9.0-12.0) sec INR (<1.2) APTT (22.0-30.0) sec Sodium (137-145) mmol/L Potassium (3.5-5.1) mmol/L Chloride (98-107) mmol/L Carbon Dioxide (22-30) mmol/L Anion Gap mmol/L BUN (9-20) mg/dL Creatinine (0.66-1.25) mg/dL Est GFR (CKD-EPI)AfAm (>60 ml/min/1.73 sqM) Est GFR (CKD-EPI)NonAf (>60 ml/min/1.73 sqM) Glucose (74-99) mg/dL Calcium (8.4-10.2) mg/dL Magnesium (1.6-2.3) mg/dL Total Bilirubin (0.2-1.3) mg/dL AST (17-59) U/L ALT (4-49) U/L Alkaline Phosphatase (38-126) U/L Troponin I <0.012 (0.000-0.034) ng/mL NT-Pro-B Natriuret Pep 84 pg/mL Total Protein (6.3-8.2) g/dL Albumin (3.5-5.0) g/dL Disposition Clinical Impression: CHF (congestive heart failure), Alcohol withdrawal Disposition: ADMITTED IP TO THIS [facility] Condition: Stable Is patient prescribed a controlled substance at d/c from ED?: No Referrals: Nonstaff,Physician [Primary Care Provider] - 1-2 days Time of Disposition: 19:03
[2021-09-17 17:50] LABS: Platelet Count 86 k/uL (150-450)
[2021-09-17 18:04] LABS: Band Neutrophils % 3 %; Eosinophils # (M) 0.07 k/uL (0-0.7); Lymphocytes # (M) 0.95 k/uL (1.0-4.8); Monocytes # (M) 0.18 k/uL (0-1.0); Neutrophils % (M) 63 %; Nucleated Red Blood Cells 0 /100 WBC (0-0); Total Cells Counted 100
[2021-09-17] MEDS ORDERED: KETOROLAC 15 MG/ML 1 ML VIAL IVP STA (18:20)
[2021-09-17] MEDS ORDERED: FUROSEMIDE 10 MG/ML 4 ML VIAL IV STA (18:20)
[2021-09-17] MEDS ORDERED: THIAMINE 100 MG/ML 2 ML VIAL IM STA (18:59)
[2021-09-17] MEDS ORDERED: LORazepam 2 MG/ML INJ IV PRN ×3 (18:59)
[2021-09-17] MEDS ORDERED: ONDANSETRON 4 MG/2 ML VIAL IVP PRN (19:00)
[2021-09-17] MEDS ORDERED: NALOXONE 0.4 MG/ML 1 ML VIAL IV PRN (19:00)
[2021-09-17] MEDS ORDERED: chlordiazePOXIDE 25 MG CAP PO PRN ×3 (19:05)
[2021-09-17] MEDS: chlordiazePOXIDE 25 MG CAP PO PRN (19:34)
[2021-09-18] MEDS: chlordiazePOXIDE 25 MG CAP PO PRN ×2 (02:12→06:23)
--- NOTE | 2021-09-18 03:32 | P.HPIM ---
History of Present Illness H&P Date: 09/17/21 The patient is a 65-year-old male with a PMH of polysubstance abuse including heroin, EtOH abuse, who was sent to the emergency room for [place] after he presented there earlier today for detox. The patient reports that he has been drinking a fifth of vodka daily for the past 6 months, and that he was hoping to get clean. [place] however sent to emergency room for evaluation of his significant lower extremity edema and pain. Patient reports long-standing bilateral lower extremity edema without diagnosis of CHF. At time of interview, he reported occasional shortness of breath without chest discomfort. He denied fever, chills, cough, nausea, vomiting, abdominal, diarrhea. Reports noncompliance with physician appointments and medications. EKG in the emergency room reveals sinus rhythm at [address]/T-wave changes noted as reviewed by me. Chest x-ray revealed cardiomegaly with pulmonary vascular congestion. Laboratory evaluation reveals a proBNP of 84, troponin less than 0.012, total bilirubin 3.0, AST 191, ALT 70, alk phos 201, platelets 86, and WBC count 3.5. Review of systems: Pertinent positives and negatives as discussed in HPI, a complete review of syst ems was performed and all other systems are negative. Physical examination: General: Disheveled male, no distress, appears older than stated age, normal weight Derm: Bilateral lower extremity chronic venous stasis changes to knees, warm Head: atraumatic, normocephalic, symmetric Eyes: EOMI, no lid lag, anicteric sclera, pupils equal round reactive to light ENT: Nose and ears atraumatic Neck: No cervical lymphadenopathy, trachea midline, supple Mouth: no lip lesion, mucus membranes moist Cardiovascular: S1S2 reg, no murmur, positive dorsalis pedis pulse bilateral, 2+ bilateral lower extremity pitting edema Lungs: CTA bilateral, no rhonchi, no rales, no accessory muscle use Abdominal: soft, nontender to palpation, no guarding, no palpable fluid wave noted Ext: muscle strength 5 out of 5 in all 4 extremities grossly, no gross muscle atrophy, no contractures, Neuro: CN II-XI grossly intact, no gross focal neuro deficits Psych: Alert, oriented, appropriate affect Assessment/plan Fluid overload, CHF versus cirrhosis -Obtain echocardiogram and right upper quadrant ultrasound -Fluid restrictions -Continue with Lasix Abnormal LFTs, likely secondary to ongoing liver injury from alcohol use -Monitor LFTs for now -Advised on importance of cessation -Thiamine, multivitamin -CIWA protocol Pancytopenia -Likely due to ongoing direct EtOH toxicity -Monitor for now DVT prophylaxis -Heparin subq The patient is admitted with an anticipated greater than 2 midnight stay for evaluation of fluid overload. CODE STATUS: Full Code Discussed with: Patient Anticipated discharge date: 09/[address]: Home Past Medical History Past Medical History: COPD History of Any Multi-Drug Resistant Organisms: None Reported Past Surgical History: Orthopedic Surgery Additional Past Surgical History / Comment(s): surgical removal of object when baby Past Anesthesia/Blood Transfusion Reactions: No Reported Reaction Past Psychological History: No Psychological Hx Reported Smoking Status: Current every day smoker Past Alcohol Use History: Abuse, Daily Past Drug Use History: Heroin - Past Family History Father Family Medical History: Cancer Additional Family Medical History / Comment(s): of brain cancer Mother Additional Family Medical History / Comment(s): Mom of brain aneurysm, had pacemaker Medications and Allergies Home Medications Medication Instructions Recorded Confirmed Type Albuterol Sulfate [Albuterol 2 puff PO RT-Q6H PRN 09/17/21 09/17/21 History Sulfate Hfa] Allergies Allergy/AdvReac Type Severity Reaction Status Date / Time No Known Allergies Allergy Verified 09/17/21 18:16 Physical Exam Vitals: Vital Signs Temp Pulse Resp BP Pulse Ox 09/17/21 20:47 61 20 94/53 100 09/17/21 16:31 98.3 F 97 20 121/75 95 Intake and Output 09/17/21 09/17/21 09/18/21 14:59 22:59 06:59 Other: Weight 99.79 kg Results CBC & Chem 7: 09/17/21 17:01 09/17/21 17:01 Labs: Abnormal Lab Results - Last 24 Hours (Table) 09/17/21 09/17/21 09/17/21 Range/Units 17:01 17:01 17:01 WBC 3.5 L (3.8-10.6) k/uL RBC 3.20 L (4.30-5.90) m/uL Hgb 12.8 L (13.0-17.5) gm/dL MCV 121.6 H (80.0-100.0) fL MCH 40.0 H (25.0-35.0) pg Plt Count 86 L (150-450) k/uL Lymphocytes # (Manual) 0.95 L (1.0-4.8) k/uL Macrocytosis Marked A PT 13.1 H (9.0-12.0) sec INR 1.3 H (<1.2) Sodium 135 L (137-145) mmol/L Creatinine 0.60 L (0.66-1.25) mg/dL Glucose 110 H (74-99) mg/dL Total Bilirubin 3.0 H (0.2-1.3) mg/dL AST 191 H (17-59) U/L ALT 70 H (4-49) U/L Alkaline Phosphatase 201 H (38-126) U/L Total Protein 9.0 H (6.3-8.2) g/dL
[2021-09-18] MEDS: FUROSEMIDE 10 MG/ML 4 ML VIAL IV SCH ×2 (08:29→21:07)
[2021-09-18] MEDS: THIAMINE 100 MG TAB PO SCH ×2 (08:30→17:06)
[2021-09-18] MEDS: HEPARIN SODIUM,PORCINE/PF 5,000 UNIT/0.5 ML SYRINGE SQ SCH ×2 (08:30→17:06)
--- NOTE | 2021-09-18 08:37 | US ---
EXAMINATION TYPE: US abdomen limited DATE OF EXAM: 09/18/2021 COMPARISON: 10/03/2019 CLINICAL HISTORY: 65-year-old male Right upper quadrant for liver evaluation. TECHNIQUE: Multiple sonographic images of the right upper quadrant are obtained. FINDINGS: EXAM MEASUREMENTS: Liver Length: 17.9 cm Gallbladder Wall: 0.2 cm CBD: 1.9 cm Right Kidney: 12.2 x 5.8 x 5.4 cm IT COMPLIANCE MANAGER NOTES:Difficult and limited study due to patient body habitus Pancreas: Only portions of the pancreatic head and neck are seen. Body and tail obscured by bowel ga s shadowing. Liver: measures in upper limits of normal, attenuating, heterogeneous, possible slight contour nodul arity. The altered echogenicity limits assessment for focal lesions. No obvious lesion is seen. Gallbladder: No hydropic change, wall thickening, pericholecystic fluid, or shadowing calculi. Evidence for sonographic Yost's sign: no CBD: dilated Right Kidney: 2.9 cm cyst at the upper pole . No hydronephrosis. IMPRESSION: 1. Borderline hepatomegaly (17.9 cm) with attenuating and heterogeneous liver parenchyma. Some images suggest slight contour nodularity to the liver. Further workup for underlying hepatocellular disease and/or fatty infiltration versus cirrhosis. 2. No gallstones or gallbladder hydrops. 3. However, there is serina enlargement of the bile duct up to 1.9 cm. This was measured at 1.3 cm carol k on 10/03/2019. Correlate with alkaline phosphatase and bilirubin levels to exclude biliary obstructi on.
--- NOTE | 2021-09-18 11:10 | P.PN ---
Subjective Progress Note Date: 09/18/21 The patient is a 65-year-old male with a PMH of polysubstance abuse including heroin, EtOH abuse, who was sent to the emergency room for [place] after he presented there earlier today for detox. The patient reports that he has been drinking a fifth of vodka daily for the past 6 months, and that he was hoping to get clean. [place] however sent to emergency room for evaluation of his significant lower extremity edema and pain. Patient reports long-standing bilateral lower extremity edema without diagnosis of CHF. At time of interview, he reported occasional shortness of breath without chest discomfort. He denied fever, chills, cough, nausea, vomiting, abdominal, diarrhea. Reports noncompliance with physician appointments and medications. EKG in the emergency room reveals sinus rhythm at [address]/T-wave changes noted as reviewed by me. Chest x-ray revealed cardiomegaly with pulmonary vascular congestion. Laboratory evaluation reveals a proBNP of 84, troponin less than 0.012, total bilirubin 3.0, AST 191, ALT 70, alk phos 201, platelets 86, and WBC count 3.5. Patient was seen this morning. He is denying any signs of withdrawal. He states that he has been urinating a lot. Patient also not sure why he was sent from [facility]. 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 spontaneously Psych - Calm and cooperative - Labs CBC & Chem 7: 09/17/21 17:01 09/17/21 17:01 Labs: Abnormal Lab Results - Last 24 Hours (Table) 09/17/21 09/17/21 09/17/21 Range/Units 17:01 17:01 17:01 WBC 3.5 L (3.8-10.6) k/uL RBC 3.20 L (4.30-5.90) m/uL Hgb 12.8 L (13.0-17.5) gm/dL MCV 121.6 H (80.0-100.0) fL MCH 40.0 H (25.0-35.0) pg Plt Count 86 L (150-450) k/uL Lymphocytes # (Manual) 0.95 L (1.0-4.8) k/uL Macrocytosis Marked A PT 13.1 H (9.0-12.0) sec INR 1.3 H (<1.2) Sodium 135 L (137-145) mmol/L Creatinine 0.60 L (0.66-1.25) mg/dL Glucose 110 H (74-99) mg/dL Total Bilirubin 3.0 H (0.2-1.3) mg/dL AST 191 H (17-59) U/L ALT 70 H (4-49) U/L Alkaline Phosphatase 201 H (38-126) U/L Total Protein 9.0 H (6.3-8.2) g/dL Assessment and Plan Assessment: Volume overload likely due to liver cirrhosis Suspect newly discovered alcoholic liver cirrhosis -Ultrasound of the right upper quadrant shows some contour nodularity which could be consistent with liver cirrhosis -Resume IV Lasix 40 mg twice a day -Start spironolactone 25 mg twice a day -On Monday will consult IR for paracentesis if abdominal distention does not improve with diuretics -We'll check echocardiogram to rule out heart failure. However doubt heart failure since BMP within normal limits. -Check ammonia level in a.m. Elevated his LFTs and bilirubin likely due to alcohol use -Right upper carotid ultrasound could not rule out while duct obstruction -We'll check MRCP Alcohol use and heroin use -Start CIWA protocol -Patient will be discharged to [facility] when medically cleared Pancytopenia likely due to liver cirrhosis -Monitor CBC DVT prophylaxis -Subcu heparin Anticipated discharge in 2-[address]: [facility]
--- NOTE | 2021-09-18 15:33 | CA ---
Transthoracic Echo Report Name: Willy Sidhu Age: 65 Gender: M : 1955 Exam Date: 09/18/2021 08:06 Exam Location: [facility] Ht (in): 69 Wt (lb): 220 Ordering Physician: Martin Moon MD Attending/Referring Phys: [id number], Red Casing Worker Kya Corcoran RDCS Procedure CPT: Indications: DARREN Cardiac Hx: Technical Quality: Technically difficult study Contrast 1: Lumason Total Dose (mL): 4 Contrast 2: Total Dose (mL): MEASUREMENTS (Male / Female) Normal Values 2D ECHO LV Diastolic Diameter PLAX 5.2 cm 4.2 - 5.9 / 3.9 - 5.3 cm LV Systolic Diameter PLAX 3.6 cm IVS Diastolic Thickness 1.3 cm 0.6 - 1.0 / 0.6 - 0.9 cm LVPW Diastolic Thickness 1.3 cm 0.6 - 1.0 / 0.6 - 0.9 cm LV Relative Wall Thickness 0.5 RV Internal Dim ED PLAX 3.7 cm LA Volume 68.8 cm??? 18 - 58 / 22 - 52 cm??? M-MODE Aortic Root Diameter MM 3.2 cm LA Systolic Diameter MM 3.3 cm LA Ao Ratio MM 1.0 AV Cusp Separation MM 1.5 cm DOPPLER AV Peak Velocity 210.4 cm/s AV Peak Gradient 17.7 mmHg LVOT Peak Velocity 96.9 cm/s LVOT Peak Gradient 3.8 mmHg MV Area PHT 3.6 cm??? Mitral E Point Velocity 101.9 cm/s Mitral A Point Velocity 92.7 cm/s Mitral E to A Ratio 1.1 MV Deceleration Time 213.1 ms FINDINGS Left Ventricle Mildly increased left ventricular wall thickness. Normal left ventricular systolic function with no obvious regional wall motion abnormalities. Left ventricular ejection fraction is estimated at 55-60 %. Right Ventricle Mild right ventricular dilatation. Right ventricular systolic pressure within normal limits. Right Atrium Normal right atrial size. Left Atrium Mildly increased left atrial volume. Mildly increased left atrial area. Mitral Valve Mitral annular calcification. Mild mitral regurgitation. Aortic Valve No aortic valve stenosis or regurgitation. Tricuspid Valve Mild tricuspid regurgitation.structurally normal tricuspid valve. Pulmonic Valve Trace pulmonic regurgitation.pulmonic valve not well visualized. Pericardium No pericardial effusion. Aorta Normal size aortic root and proximal ascending aorta. CONCLUSIONS Technically difficult study. Normal size and systolic function Mild mitral and tricuspid regurgitation Previewed by: Dr. Brendan Ray MD (Electronically Signed) Final Date: 18 September 2021 15:32
[2021-09-18] MEDS: SPIRONOLACTONE 25 MG TAB PO SCH ×2 (17:06→22:16)
[2021-09-19] MEDS: HEPARIN SODIUM,PORCINE/PF 5,000 UNIT/0.5 ML SYRINGE SQ SCH ×4 (00:01→23:44)
[2021-09-19 07:34] LABS: Basophils % (A) 1 %; Eosinophils # (A) 0.2 k/uL (0-0.7); Eosinophils % (A) 4 %; HCT 39.6 % (39.0-53.0); HGB 12.7 gm/dL (13.0-17.5); Lymphocytes # (A) 1.2 k/uL (1.0-4.8); Lymphocytes % (A) 29 %; MCV 121.7 fL (80.0-100.0); Macrocytosis Marked; Mean Platelet Volume 9.5; Monocytes # (A) 0.2 k/uL (0-1.0); Monocytes % (A) 6 %; Neutrophils # (A) 2.2 k/uL (1.3-7.7); Neutrophils % (A) 56 %; Platelet Count 88 k/uL (150-450); RBC 3.26 m/uL (4.30-5.90); RDW 14.3 % (11.5-15.5); WBC 3.9 k/uL (3.8-10.6)
[2021-09-19 07:47] LABS: ALT 70 U/L (4-49); AST 181 U/L (17-59); African American GFR (CKD) >90 (>60 ml/min/1.73 sqM); Albumin 3.4 g/dL (3.5-5.0); Albumin/Globulin Ratio 0.7; Alkaline Phosphatase 189 U/L (38-126); Anion Gap 9 mmol/L; Blood Urea Nitrogen 25 mg/dL (9-20); Calcium 8.3 mg/dL (8.4-10.2); Carbon Dioxide 30 mmol/L (22-30); Chloride 99 mmol/L (98-107); Globulin 5.1 g/dL; Glucose 133 mg/dL (74-99); Magnesium 1.6 mg/dL (1.6-2.3); Non-African American GFR(CKD) >90 (>60 ml/min/1.73 sqM); Potassium 4.2 mmol/L (3.5-5.1); Sodium 138 mmol/L (137-145); Total Bilirubin 2.6 mg/dL (0.2-1.3); Total Protein 8.5 g/dL (6.3-8.2)
[2021-09-19] MEDS: FUROSEMIDE 10 MG/ML 4 ML VIAL IV SCH ×2 (08:01→20:14)
[2021-09-19 08:37] LABS: Anisocytosis (M) Present; Poikilocytosis (M) Present
[2021-09-19] MEDS: THIAMINE 100 MG TAB PO SCH ×2 (08:48→17:39)
[2021-09-19] MEDS: SPIRONOLACTONE 25 MG TAB PO SCH ×2 (08:48→23:03)
[2021-09-19] MEDS ORDERED: IPRATROPIUM-ALBUTEROL 3 ML NEB INHALATION STA (11:00)
[2021-09-19] MEDS ORDERED: IPRATROPIUM-ALBUTEROL 3 ML NEB INHALATION PRN (11:00)
--- NOTE | 2021-09-19 11:57 | P.PN ---
Subjective Progress Note Date: 09/19/21 Principal diagnosis: Lower extremity edema Patient states that his lower extremity edema is improving. Patient currently denying any signs of withdrawal. Patient had a empty bag of chips at bedside. He also had a full cup of water. I counseled patient on salt restriction and fluid restriction. I discussed with the nurse. Patient also having some audible wheezing. I will start the patient on breathing treatments and steroids. Objective - Vital Signs Vital signs: Vital Signs Temp 98.0 F 09/19/21 07:58 Pulse 95 09/19/21 07:58 Resp 18 09/19/21 07:58 BP 146/89 09/19/21 07:58 Pulse Ox 92 L 09/19/21 07:58 FiO2 Intake & Output 09/18/21 09/19/21 09/19/21 18:59 06:59 18:59 Weight 99.79 kg 109.4 kg Other: Voiding Method Toilet # Voids 4 3 - Exam General examination - Alert and Oriented 3 in NAD Heart - + S1S2 no murmurs Lungs - diffuse bilateral wheezing Abdomen soft NT NONDISTENDED +ve BS Extremities - +1 pitting edema bilateral lower extremities TIP CEMENTER - Moving all 4 extremities spontaneously Psych - Calm and cooperative - Labs CBC & Chem 7: 09/19/21 06:57 09/19/21 06:57 Labs: Abnormal Lab Results - Last 24 Hours (Table) 09/19/21 09/19/21 09/19/21 Range/Units 06:57 06:57 06:57 RBC 3.26 L (4.30-5.90) m/uL Hgb 12.7 L (13.0-17.5) gm/dL MCV 121.7 H (80.0-100.0) fL MCH 39.0 H (25.0-35.0) pg Plt Count 88 L (150-450) k/uL Macrocytosis Marked A BUN 25 H (9-20) mg/dL Glucose 133 H (74-99) mg/dL Calcium 8.3 L (8.4-10.2) mg/dL Total Bilirubin 2.6 H (0.2-1.3) mg/dL AST 181 H (17-59) U/L ALT 70 H (4-49) U/L Alkaline Phosphatase 189 H (38-126) U/L Ammonia 65 H (<30) umol/L Total Protein 8.5 H (6.3-8.2) g/dL Albumin 3.4 L (3.5-5.0) g/dL Assessment and Plan Assessment: Volume overload likely due to liver cirrhosis Suspect newly discovered alcoholic liver cirrhosis -Ultrasound of the right upper quadrant shows some contour nodularity which could be consistent with liver cirrhosis -Resume IV Lasix 40 mg twice a day -Start spironolactone 25 mg twice a day -Echocardiogram shows normal LV function and BMP was within normal limits so doubt heart failure as the etiology for his volume overload -Ammonia level mildly elevated. We'll start patient on lactulose. Trend ammonia -We'll place patient on a salt restriction and fluid restriction diet. Patient also counseled on diet Elevated his LFTs and bilirubin likely due to alcohol use -Right upper carotid ultrasound could not rule out while duct obstruction -We'll check MRCP -LFTs and bilirubin improving Alcohol use and heroin use -Start [facility] protocol -Patient will be discharged to [facility] when medically cleared Pancytopenia likely due to liver cirrhosis -Monitor CBC -> stable DVT prophylaxis -Subcu heparin Anticipated discharge in 1-[address]: [facility]
[2021-09-19] MEDS: IBUPROFEN 400 MG TAB PO PRN ×2 (12:50→22:26)
[2021-09-19] MEDS: LACTULOSE 20 GM/30 ML CUP PO SCH (12:51)
[2021-09-19] MEDS: DOXYCYCLINE 100 MG CAP PO SCH ×2 (12:51→23:03)
[2021-09-19] MEDS: methylPREDNISolone SOD SUCCI 40 MG/ML 1 ML VIAL IV SCH ×2 (17:38→23:02)
[2021-09-20 06:14] LABS: ALT 77 U/L (4-49); AST 190 U/L (17-59); African American GFR (CKD) >90 (>60 ml/min/1.73 sqM); Albumin 3.7 g/dL (3.5-5.0); Albumin/Globulin Ratio 0.6; Alkaline Phosphatase 219 U/L (38-126); Anion Gap 10 mmol/L; Basophils % (A) 0 %; Blood Urea Nitrogen 22 mg/dL (9-20); Calcium 8.9 mg/dL (8.4-10.2); Carbon Dioxide 29 mmol/L (22-30); Chloride 98 mmol/L (98-107); Eosinophils % (A) 1 %; Globulin 5.7 g/dL; Glucose 153 mg/dL (74-99); HCT 43.9 % (39.0-53.0); HGB 13.6 gm/dL (13.0-17.5); Lymphocytes # (A) 0.5 k/uL (1.0-4.8); Lymphocytes % (A) 18 %; MCH 37.3 pg (25.0-35.0); MCHC 31.1 g/dL (31.0-37.0); Macrocytosis Marked; Magnesium 1.5 mg/dL (1.6-2.3); Mean Platelet Volume 9.1; Monocytes # (A) 0.1 k/uL (0-1.0); Monocytes % (A) 3 %; Neutrophils # (A) 2.1 k/uL (1.3-7.7); Neutrophils % (A) 76 %; Non-African American GFR(CKD) >90 (>60 ml/min/1.73 sqM); Platelet Count 94 k/uL (150-450); Potassium 3.8 mmol/L (3.5-5.1); RBC 3.65 m/uL (4.30-5.90); RDW 13.9 % (11.5-15.5); Sodium 137 mmol/L (137-145); Total Protein 9.4 g/dL (6.3-8.2); WBC 2.7 k/uL (3.8-10.6)
[2021-09-20] MEDS: THIAMINE 100 MG TAB PO SCH ×2 (10:21→17:38)
[2021-09-20] MEDS: LACTULOSE 20 GM/30 ML CUP PO SCH (10:21)
[2021-09-20] MEDS: DOXYCYCLINE 100 MG CAP PO SCH ×2 (10:21→20:54)
[2021-09-20] MEDS: SPIRONOLACTONE 25 MG TAB PO SCH ×2 (10:21→20:54)
[2021-09-20] MEDS: HEPARIN SODIUM,PORCINE/PF 5,000 UNIT/0.5 ML SYRINGE SQ SCH ×2 (10:21→16:13)
[2021-09-20] MEDS: MAGNESIUM SULFATE-D5W PMX 1 GM in DEXTROSE/WATER 1 100ML.BAG IVPB SCH ×4 (11:08→16:13)
[2021-09-20] MEDS: methylPREDNISolone SOD SUCCI 40 MG/ML 1 ML VIAL IV SCH ×2 (11:28→20:53)
[2021-09-20] MEDS: FUROSEMIDE 10 MG/ML 4 ML VIAL IV SCH ×2 (11:28→20:53)
--- NOTE | 2021-09-20 14:13 | MR ---
EXAMINATION TYPE: MR MRCP DATE OF EXAM: 09/20/2021 COMPARISON: Ultrasound dated 04/20/2021 INDICATION: Evaluate for bile duct obstruction. TECHNIQUE: Standard multiplanar, multisequence MRCP without IV gadolinium demonstration. 3-D images were generat ed on an independent workstation and reviewed. FINDINGS: Motion artifacts. Enlarged liver measuring 19.3 cm with nodular outline and heterogenous texture sugg estive of hepatic cirrhosis. Recommend correlation with liver function tests and hepatic viral serolo gy. No definite filling defect seen within the gallbladder with no signs of acute cholecystitis. Markedly dilated central intrahepatic biliary tree measuring up to 2 cm with dilated CHD and CBD tomy uring up to 1.9 cm. There is also slightly prominent posterior aspect of the pancreatic duct measurin g up to 7 mm. The most inferior aspect of the CBD towards the ampulla is not seen opacified. No obvio us filling defect seen within the CBD however tiny subtle lesion or stricture at the most inferior as pect of the CBD/ampulla cannot be excluded. Enlarged spleen measuring 14.5 cm. No obvious hepatic or splenic focal lesion by this nonenhanced MRI . Slightly atrophic changes of the pancreas. Unremarkable adrenals. Multiple variable sized bilateral renal cysts without gross suspicious feature. Grossly unremarkable nondistended stomach, duodenum an d visualized bowel. Preserved signal void pattern of the abdominal aorta and IVC. Subcentimeter jyotsna hepatis and portaca mayela lymph nodes, nonspecific. No abdominal ascites. Suspected bilateral gynecomastia changes. Degener ative changes of the visualized portion of the spine. IMPRESSION: Suspected cirrhotic hepatic changes and splenomegaly, please correlate clinically for portal hyperten francine. Correlation with liver function tests/hepatic viral serology is also advised. Dilated intrahepatic biliary tree as described above. No obvious filling defect within the CBD howeve r a stricture or subtle tiny lesion at the most inferior aspect of the CBD/ampulla cannot be excluded by this nonenhanced MRI. Recommend clinical correlation and correlation with bilirubin level. Further enhanced CT scan/enhance d MRI assessment or ERCP assessment can be considered if clinically required. Other findings as descr ibed above.
--- NOTE | 2021-09-20 14:28 | P.DS ---
Providers Date of admission: 09/17/21 19:00 Expected date of discharge: 09/20/21 Attending physician: Celia Almonte DO Primary care physician: Physician Nonstaff Hospital Course: Discharge Diagnosis: Newly diagnosed alcoholic liver cirrhosis Volume overload Elevated LFTs secondary to alcohol use: MRCP showed no obvious common bile duct filling defect Pancytopenia secondary to alcohol use: Stable Alcohol use COPD exacerbation Hospital Course: Patient is a 65-year-old male with a past medical history of polysubstance abuse including heroin, alcohol abuse who presented to the ED from [facility] after he presented there earlier for detox. Patient was sent from [facility] for evaluation of his significant lower extremity edema and pain. In the ED patient's BNP was 84. LFTs and bilirubin were elevated. Chest x-ray showed cardiomegaly with pulmonary vascular congestion. Patient was admitted and started diuretics. Patient was worked up for his volume overload. Patient had a right upper quadrant ultrasound done that showed findings consistent with liver cirrhosis. Patient also had an echocardiogram that showed normal LV function. So the likely etiology of his volume overload is liver cirrhosis caused by alcohol abuse. During hospital course patient's swelling in his lower extremities was improving. Patient will be discharged on spironolactone and Lasix. Patient's right upper quadrant ultrasound showed bilateral duct dilatation. So patient then had a MRCP done that showed no obvious filling defect in the common bile duct. Patient also asymptomatic for cholecystitis. Patient's ammonia was also elevated so he will be discharged on lactulose. Patient also had wheezing on exam. So he'll be discharged on prednisone for 5 days with a albuterol rescue inhaler and also completed his antibiotic course with doxycycline. Patient instructed to follow with his PCP and also with gastroenterology. At the time of discharge patient had no withdrawal symptoms. Patient does not believe he needs to go back to [place]. However he needs a ride to take him back to his home in [place] so he is amenable to going to [facility] who patient claims can arrange for his transport. Patient seen and examined at bedside.[] Vital signs reviewed and stable. General: [non toxic], [no distress], [appears at stated age] appears chronically debilitated Derm: [warm], [dry] Head: [atraumatic], [normocephalic], [symmetric] Eyes: [EOMI], [no lid lag], [anicteric sclera] Mouth: [no lip lesion], [mucus membranes moist] Cardiovascular: [S1S2 reg], [no murmur], [positive posterior tibial pulse bilateral], Lungs: [CTA bilateral], [no rhonchi, no rales] , [no accessory muscle use] Abdominal: [soft], [ nontender to palpation], [no guarding], [no appreciable organomegaly] obese Ext: [no gross muscle atrophy], [+1 pitting edema in bilateral lower extremities], [no contractures] Neuro: [ CN II-XI grossly intact], [no focal neuro deficits] Psych: [Alert], [oriented], [appropriate affect] A total of [40] minutes of time were spent preparing this complex discharge summary . Patient Condition at Discharge: Stable Plan - Discharge Summary Discharge Rx Participant: No New Discharge Prescriptions: New RX: Spironolactone [Aldactone] 25 mg PO BID #60 tab RX: Lactulose [Cephulac] 30 gm PO DAILY #2000 ml Furosemide [Lasix] 40 mg PO DAILY 30 Days #30 tablet RX: predniSONE 50 mg PO DAILY 4 Days #4 tablet RX: Doxycycline [Vibramycin] 100 mg PO BID 4 Days #8 cap Continue RX: Albuterol Sulfate [Albuterol Sulfate Hfa] 2 puff PO RT-Q6H PRN PRN Reason: Shortness Of Breath Discharge Medication List RX: Albuterol Sulfate [Albuterol Sulfate Hfa] 2 puff PO RT-Q6H PRN 09/17/21 [History] Furosemide [Lasix] 40 mg PO DAILY 30 Days #30 tablet 09/20/21 [Rx] RX: Doxycycline [Vibramycin] 100 mg PO BID 4 Days #8 cap 09/20/21 [Rx] RX: Lactulose [Cephulac] 30 gm PO DAILY #2000 ml 09/20/21 [Rx] RX: Spironolactone [Aldactone] 25 mg PO BID #60 tab 09/20/21 [Rx] RX: predniSONE 50 mg PO DAILY 4 Days #4 tablet 09/20/21 [Rx] Follow up Appointment(s)/Referral(s): Nonstaff,Physician [Primary Care Provider] - 1-2 days Sydney Childress MD [STAFF PHYSICIAN] - 1 Week Discharge Disposition: OTHER INSTITUTION NOT DEFINED Plan of Treatment: Please find a GI doctor in your area [place] or you can follow with Dr. Childress
[2021-09-20 19:53] VITALS: BP 142/77; PULSE 108; RESP 18; TEMP 97.7
== END 2021-09-20 23:25 | disposition home or self-care (01) | DRG 433 ==
LOC: EC 16:18 → 3SCARD 19:00 → 4SSUR 09-18 14:32
PROVIDERS: ADMIT Internal Medicine; ATTEND Internal Medicine
DX: K70.30 Alcoholic cirrhosis of liver without ascites (principal); D61.818 Other pancytopenia; J44.1 Chronic obstructive pulmonary disease with (acute) exacerbation; F10.239 Alcohol dependence with withdrawal, unspecified; E87.70 Fluid overload, unspecified; F17.210 Nicotine dependence, cigarettes, uncomplicated; F11.90 Opioid use, unspecified, uncomplicated; Z28.310 Unvaccinated for COVID-19; Z79.899 Other long term (current) drug therapy; Z80.8 Family history of malignant neoplasm of other organs or systems; Z86.79 Personal history of other diseases of the circulatory system; Z91.19 Patient's noncompliance with other medical treatment and regimen
CPT/HCPCS: 36415; 71046; 74181; 76705; 80053; 82140; 83735; 83880; 84484; 85025; 85610; 85730; 87635; 93005; 93306; 94640